=== PATIENT | female | born 1970 | race Caucasian/White ===

== ENCOUNTER → 2018-05-02 | Outpatient (CLI) | payer OTHER | END | disposition home or self-care (01) | LOC: CIMAGING 15:45 | PROVIDERS: ATTEND Physician Assistant Medical | DX: M20.11 Hallux valgus (acquired), right foot (principal); M21.611 Bunion of right foot; M77.31 Calcaneal spur, right foot; M25.774 Osteophyte, right foot | CPT/HCPCS: 73630-PO; 73650-PO ==

== ENCOUNTER → 2018-06-24 | Outpatient (CLI) | payer OTHER | LOC: CIMAGING 14:20 | PROVIDERS: ATTEND Physician Assistant Medical | DX: J40 Bronchitis, not specified as acute or chronic (principal) | CPT/HCPCS: 71046-PO ==

== ENCOUNTER → 2018-07-05 | Outpatient (CLI) | payer OTHER | LOC: CIMAGING 08:59 | PROVIDERS: ATTEND Physician Assistant | DX: R11.0 Nausea (principal); K76.0 Fatty (change of) liver, not elsewhere classified | CPT/HCPCS: 76705-PO ==